=== PATIENT | female | born 1940 | race Caucasian/White ===

== ENCOUNTER → 2017-08-05 | Outpatient (CLI) | payer MEDICARE ==
--- NOTE | 2017-08-05 15:51 | EKG ---
Date Performed: 08/05/2017 Time Performed: 10:45:10 PTAGE: 77 years EKG: Sinus rhythm . Normal ECG NO PREVIOUS TRACING DOCTOR: George Cee Interpretating Date/Time 08/05/2017 15:50:11
== END ==
LOC: HCAV 10:37
PROVIDERS: ATTEND Urology
DX: Z01.810 Encounter for preprocedural cardiovascular examination (principal)
CPT/HCPCS: 93005

== ENCOUNTER → 2018-01-19 | Day surgery (SDC) | payer MEDICARE ==
[~2018-01-19] VITALS: Ht 154.9 cm; Wt 59.5 kg
[~2018-01-19] MED LIST: ASPI81TA23 PO; ATOR20TA15 PO; BENA10TA PO; CALC1TAB87 PO; CETI-1 PO; CHLORHEXIDINE GLUCONATE 2 % 1 PACK (2 CLOTHS) TOPICAL PRN; ESTR.625 PO; ESTR42.5V VAGINAL; FENO1TAB39 PO; KETOROLAC TROMETHAMINE 30 MG/ML (IVP) VIAL ONE; LACTATED RINGER'S 1000 ML IV PRN; METOPROLOL TARTRATE 25 MG TAB PO PRN; OMEP20TA93 PO; POVIDONE IODINE 5% (ANTISEPSIS KIT) 4 APPLICATIONS EACH NARE PRN; SODIUM CHLORID 0.9% 500 ML IV PRN; ceFAZolin 1,000 MG/NS 100 ML IV SCH
--- NOTE | 2018-01-19 08:39 | RADRPT ---
EXAM DATE: 01/19/2018 8:33 AM EDT AGE/SEX: 77 years / Female INDICATIONS: Evaluate for pneumonia, pneumothorax or communicable disease. Pre op vaginal surgery. CLINICAL DATA: This is the patient's initial encounter. Patient reports that signs and symptoms have been present for 1 day and indicates a pain score of 0/10. MEDICAL/SURGICAL HISTORY: None. None. COMPARISON: No prior [facility] exams available for comparison. FINDINGS: No significant focal pleural or parenchymal opacities. Cardiomegaly some contours are within normal l imits. Retrocardiac opacity may reflect a small hiatal hernia. Osseous structures are intact. CONCLUSION: 1. No acute cardiopulmonary disease. Electronically signed by: Brenden Christensen MD 01/19/2018 8:38 AM EDT
[2018-01-19 11:21] VITALS: PULSE 74
--- NOTE | 2018-01-19 11:48 | PD.OP ---
cc: Chase Anne MD Operative Report Preoperative Diagnosis: (1) Labial and clitoral adhesions, acquired (2) Bladder polyp Postoperative Diagnosis: (1) Bladder polyp (2) Labial and clitoral adhesions, acquired Procedure: lysis of labial and clitoral adhesions cystoscopy Anesthesia: Dr. Agustin HAMMOND Surgeon: Romelia Marquez Imagery Analyst(s): Rickey Johnson Surgeon: n/a Operation and Findings: Indications: Patient was referred to Dr. Anne for dysuria and other voiding issues. On exam her labia majora were so adherent in the midline over the introitus that the urethral meatus could not be identified. She had several weeks of conservative therapy with topical estrogen and limited blunt and sharp dissection in the office with minimal results. She agreed to lysis of adhesions under anesthesia. Findings: Dense adhesions were lysed from the 8 mm opening in the adhesion, and extended down to the fourchette bluntly. The superior aspect was lysed sharply and bluntly using lacrimal duct probe and Metzenbaum scissors. The clitoral smith was loosened enough to visualize the clitoris. On cystoscopy visualization was difficult due to the stranding of mucus in the urine and some bleeding from the exterior urethra where adhesions were lysed. There was a polyp seen on the right side of the bladder, but visualization was poor so biopsy was not done. Also urine was not collected as specimen because of blood present. Procedure: After induction of general anesthesia the patient was positioned in dorso-lithotomy in low stirrups. Exterior prep was done and prep was continued as adhesiolysis progressed. The labia majora were bluntly to the fourchette. The labia majora were superiorly with blunt and sharp dissection, and then the labia minora were from the majora. The clitoral smith was freed with sharp and blunt dissection. The anterior and posterior vaginal celaya were adhered together and the lower 1/3 was opened bluntly and sharply, but it was then evident that she had a relatively patulous introitus and a rectocele already developing as the vaginal celaya were freed. Thus the vaginal dissection was discontinued to prevent producing a symptomatic uterovaginal prolapse. Cystoscopy was then performed after cautery of some bleeding of the vagina overlying the urethra. The initial urine returned was too bloody to send for specimen. There was poor visualization with mucus stranding in the urine and the urine itself was cloudy, even after flushing the bladder several times. The bladder was irregular in shape with evidence of chronic stretching. A bladder polyp was noted on the right, but not biopsied due to poor visualization. After careful hemostasis and allowing the tissues to dry, Dermabond could be applied at the adhesions sites to prevent re-agglutination in the midline while healing. The patient was transferred to PACU awake and breathing on her own. Romelia Marquez MD January 19, 2018 11:48
[2018-01-19 12:00] VITALS: PULSE 68; TEMP 98
[2018-01-19 12:40] VITALS: BP 126/65; PULSE 72; RESP 16; O2SAT 98
== END | disposition home or self-care (01) ==
LOC: PHSDC 07:05
PROVIDERS: ATTEND Obstetrics & Gynecology
DX: N90.89 Other specified noninflammatory disorders of vulva and perineum (principal); D41.4 Neoplasm of uncertain behavior of bladder
CPT/HCPCS: 00940; 56441; 71045; J0690; J1885; J3010; J7120